=== PATIENT | female | born 1950 | race Caucasian/White ===

== ENCOUNTER 2024-01-18 02:28 | Emergency (ER) | payer BC ==
[2024-01-18 03:04] LABS: BASOPHILS ABSOLUTE AUTO 0.07 K/uL (0.00-0.10); BASOPHILS PERCENT AUTO 0.6 % (0.1-1.3); EOSINOPHILS ABSOLUTE AUTO 0.42 K/uL (0.00-0.40); EOSINOPHILS PERCENT AUTO 3.9 % (0.0-5.4); HEMATOCRIT 34.3 % (34.3-46.0); HEMOGLOBIN 11.4 g/dL (11.2-15.5); IMMATURE GRAN PERCENT AUTO 0.2 % (0.0-0.7); LYMPHOCYTES ABSOLUTE AUTO 4.12 K/uL (0.8-3.3); LYMPHOCYTES PERCENT AUTO 38.2 % (11.4-47.7); MEAN CORPUSCULAR HEMOGLOBIN 31.8 pg (31.6-35.5); MEAN CORPUSCULAR HGB CONC 33.2 g/dL (31.6-35.5); MEAN CORPUSCULAR VOLUME 95.8 fL (81.4-99.0); MONOCYTES ABSOLUTE AUTO 0.64 K/uL (0.20-0.90); MONOCYTES PERCENT AUTO 5.9 % (3.3-12.6); NEUTROPHILS ABSOLUTE AUTO 5.52 K/uL (1.0-7.6); NEUTROPHILS PERCENT AUTO 51.2 % (40.0-78.1); PLATELET COUNT,PLT 232 K/uL (130-375); RED BLOOD CELL COUNT 3.58 M/uL (3.77-5.24); WHITE BLOOD CELL COUNT,WBC 10.8 K/uL (3.2-11.0)
[2024-01-18 03:05] LABS: IMMATURE GRAN ABSOLUTE AUTO 0.02 K/uL (0.00-0.23)
== END 2024-01-18 04:29 | disposition home or self-care (01) ==
LOC: JP.ED 02:28
DX: R10.31 Right lower quadrant pain (principal); Z79.01 Long term (current) use of anticoagulants; Z79.899 Other long term (current) drug therapy; Z79.890 Hormone replacement therapy; Z90.710 Acquired absence of both cervix and uterus
CPT/HCPCS: 36415; 85025; 85379; 86140; 99283

== ENCOUNTER 2024-01-18 19:16 | Emergency (ER) | payer BC | END 2024-01-18 21:17 | disposition home or self-care (01) | LOC: JP.ED 19:16 | DX: R10.31 Right lower quadrant pain (principal); I48.91 Unspecified atrial fibrillation; E03.9 Hypothyroidism, unspecified; Z79.01 Long term (current) use of anticoagulants; Z79.899 Other long term (current) drug therapy | CPT/HCPCS: 76881-RT; 99283 ==